=== PATIENT | male | born 1980 | race Caucasian/White ===

== ENCOUNTER 2017-04-10 17:31 | Emergency (ER) | payer OTHER ==
[~2017-04-10] VITALS: Ht 177.8 cm; Wt 81.7 kg
[2017-04-10] MEDS ORDERED: PREDNISONE20 MG PO (17:48)
[2017-04-10] MEDS ORDERED: NEURONTIN300 MG PO (17:48)
[2017-04-10] MEDS ORDERED: VALTREX1000 MG PO (17:48)
== END 2017-04-10 18:01 | disposition home or self-care (01) ==
LOC: ED 17:31
DX: B02.9 Zoster without complications (principal)
CPT/HCPCS: 99283; J7512